=== PATIENT | male | born 1980 ===

== ENCOUNTER 2020-11-01 14:51 | Emergency (ER) | payer SELFPAY ==
[~2020-11-01] VITALS: Ht 175.3 cm; Wt 78.5 kg
[2020-11-01] MEDS ORDERED: Amoxicillin500 MG PO (15:38)
[2020-11-01] MEDS ORDERED: Norco 5-325 Ta1 EACH PO (15:38)
== END 2020-11-01 15:40 | disposition home or self-care (01) ==
LOC: ER 14:51
DX: K04.7 Periapical abscess without sinus (principal)
CPT/HCPCS: 99282